=== PATIENT | female | born 1960 | race Caucasian/White ===

== ENCOUNTER 2016-12-23 15:53 | Emergency (ER) | payer MEDICARE, OTHER ==
[~2016-12-23 15:53] MED LIST: ASAB; ASAB PO; BEN25 PO; BUM2 PO; DIABETA5 PO; DUONEB; FERRETTS325 MG PO; FERROUS SULF325 M1 PO; FORTAMET500 MG PO; GLUCOTROL5 PO; HEPA50006 SQ; IRON325 MG PO; L40 PO; LEVEMIR PO; LEVEMIR SQ; LIPITOR80 MG PO; LOP25 PO; MULTIPLE VIT PO; NEUR100 PO; NICODERM C14 MG/24 H TOP; NORCO1 TA1 PO; NORV5 PO; NOVOLOG; NOVOLOG SC; PLAVIX PO; SODBICAR10 PO; V5 PO; VITAMIN D31000 UNIT PO; ZOCOR20 PO; [UNRECOGNIZED DRUG - REMARK]
[2016-12-23 16:05] LABS: BASOPHILS 0.9 %; BASOPHILS ABSOLUTE 0.08 10/3/uL (0.0-0.16); EOSINOPHILS 6.7 %; EOSINOPHILS ABSOLUTE 0.58 10/3/uL (0.0-0.53); ER CBC TAT 0 Hrs 11 Mins; HEMATOCRIT 34.1 % (36.0-48.0); HEMOGLOBIN 11.1 g/dL (12.0-16.0); IMMATURE GRANULOCYTES 0.2 %; IMMATURE GRANULOCYTES ABSOLUTE 0.02 10/3/uL (0.0-0.11); LYMPHOCYTES 24.8 %; LYMPHOCYTES ABSOLUTE 2.14 10/3/uL (0.67-4.30); MEAN CORPUS HGB CONC 32.6 g/dL (32.0-36.0); MEAN PLATELET VOLUME 10.4 fL (9.2-13.0); MONOCYTES 6.5 %; MONOCYTES ABSOLUTE 0.56 10/3/uL (0.21-1.20); NEUTROPHILS 60.9 %; NEUTROPHILS ABSOLUTE 5.24 10/3/uL (2.02-8.40); RBC DISTRIBUTION WIDTH 14.7 % (12.0-16.0); RED CELL COUNT 3.36 10/6/uL (4.0-5.6); WHITE BLOOD CELLS 8.6 10/3/uL (4.5-10.5)
[2016-12-23 16:07] LABS: MANUAL DIFF NO %; MEAN CORPUSCULAR VOLUME 101.5 fL (80-100); PLATELET COUNT 282 10/3/uL (150-400)
[2016-12-23 16:18] LABS: PARTIAL THROMBO TIME 32.5 SEC (22.5-37.2); PROTIME (NOT ORD) 12.9 SEC (12.0-14.5)
[2016-12-23 16:20] LABS: A/G RATIO 0.9 (0.7-1.9); ALBUMIN 3.4 G/DL (3.5-5.0); BUN (BLOOD UREA NITROGEN) 91 MG/DL (6-23); CALCIUM, SERUM 8.5 MG/DL (8.5-10.4); CHLORIDE, SERUM 110 MMOL/L (96-112); CO2 (CARBON DIOXIDE) 27 MMOL/L (24-34); CREATININE 5.69 MG/DL (0.55-1.02); GFR AFRICAN AMERICAN 9 ML/MIN (>=60); GFR NON AFRICAN AMERICAN 8 ML/MIN (>=60); GLOBULIN 3.8 G/DL (2.5-4.1); POTASSIUM, SERUM 4.4 MMOL/L (3.5-5.3); SGOT(AST) 16 U/L (5-40); SGPT(ALT) 19 U/L (5-65); SODIUM, SERUM 143 MMOL/L (135-148); TOTAL BILIRUBIN 0.4 MG/DL (0-1.2); TOTAL PROTEIN 7.2 G/DL (6.0-8.5)
[2016-12-23 16:24] LABS: ALKALINE PHOSPHATASE 80 U/L (45-117); GLUCOSE, SERUM 49 MG/DL (60-99)
== END 2016-12-23 18:27 | disposition home or self-care (01) ==
LOC: ER 15:53
PROVIDERS: Hospitalist
DX: T82.590A Other mechanical complication of surgically created arteriovenous fistula, initial encounter (principal); E11.22 Type 2 diabetes mellitus with diabetic chronic kidney disease; N18.6 End stage renal disease; E11.649 Type 2 diabetes mellitus with hypoglycemia without coma; J44.9 Chronic obstructive pulmonary disease, unspecified; I25.2 Old myocardial infarction; D64.9 Anemia, unspecified; I25.10 Atherosclerotic heart disease of native coronary artery without angina pectoris; Z95.1 Presence of aortocoronary bypass graft; Z95.5 Presence of coronary angioplasty implant and graft; Z88.2 Allergy status to sulfonamides; Z79.4 Long term (current) use of insulin; Z79.82 Long term (current) use of aspirin
CPT/HCPCS: 80053; 82962; 85025; 85610; 85730; 96374; 99284